=== PATIENT | female | born 1970 | race Caucasian/White ===

== ENCOUNTER 2023-11-27 21:47 | Emergency (ER) | payer BC ==
[2023-11-27 22:00] VITALS: BMI 34.3
[2023-11-28 01:17] VITALS: BP 120/77; PULSE 82; RESP 15; TEMP 98.3
[2023-11-28 01:23] LABS: BASO % 0.3 % (0-2.0); EOS % 0.9 % (0-4.5); HEMATOCRIT 40.4 % (32.4-45.2); HEMOGLOBIN 13.7 GM/dL (10.7-15.3); LYMPH % 14.1 % (8-40); MCH 31.8 pg (25.7-33.7); MEAN CELL VOLUME 93.7 fl (80-96); MEAN PLT VOLUME 8.5 fl (7.5-11.1); MONO % 3.5 % (3.8-10.2); NEUT % 81.2 % (42.8-82.8); PLATELET COUNT 331 10^3/uL (134-434); RBC 4.31 M/mm3 (3.60-5.2); RDW 13.2 % (11.6-15.6); WHITE BLOOD COUNT 10.3 K/mm3 (4.0-10.0)
[2023-11-28 01:36] LABS: INR 1.02 (0.83-1.09); PROTHROMBIN TIME (PATIENT) 11.5 SEC (9.7-13.0)
[2023-11-28 01:38] LABS: ACTIVATED PTT 32.7 SECONDS (25.2-36.5)
[2023-11-28 01:48] LABS: POTASSIUM 3.7 mmol/L (3.5-5.1)
[2023-11-28 01:50] LABS: BLOOD UREA NITROGEN 16.2 mg/dL (7-18); CALCIUM 9.2 mg/dL (8.5-10.1)
[2023-11-28 01:51] LABS: ALBUMIN 3.6 g/dl (3.4-5.0)
[2023-11-28 01:54] LABS: CREATININE 0.8 mg/dL (0.55-1.3)
[2023-11-28 01:55] LABS: BILIRUBIN,TOTAL 0.3 mg/dL (0.2-1); TOT PROT 6.9 g/dl (6.4-8.2)
== END 2023-11-28 05:00 | disposition home or self-care (01) ==
LOC: JER 21:47
DX: R55 Syncope and collapse (principal); Z20.822 Contact with and (suspected) exposure to COVID-19
CPT/HCPCS: 0241U-QW; 36415; 70450-TC; 71046-TC-FY; 72070-TC-FY; 72100-TC-FY; 72125-TC; 80053; 84484; 85025; 85610; 85730; 93005; 93010; 99285-25